=== PATIENT | female | born 1990 | race Two or more races ===

== ENCOUNTER 2016-12-12 08:45 | Emergency (ER) | payer SELFPAY ==
[~2016-12-12] VITALS: Ht 172.7 cm; Wt 90.7 kg
[~2016-12-12 08:45] MED LIST: ALBU8.5H6 IH
[2016-12-12] MEDS ORDERED: predniSONE 10 MG TABLET PO ONE (09:00)
[2016-12-12] MEDS ORDERED: IPRATRPIUM/ALBUTEROL 0.5/2.5MG 3 ML NEBU. NEB ONE (09:00)
[2016-12-12] MEDS ORDERED: PRED50TA PO (09:03)
[2016-12-12] MEDS ORDERED: VENTOLIN HFA18 GM INH (09:03)
--- NOTE | 2016-12-12 09:04 | PHYS DOC ---
Past Medical History Past Medical History: Asthma Additional Past Medical Histor: smoking Past Surgical History: Cholecystectomy Additional Past Surgical Histo: Gall stones in bile duct. Alcohol Use: None Drug Use: Marijuana Adult General Chief Complaint Chief Complaint: ASTHMA HPI HPI Patient is a 26 year old female with history of asthma who presents today complaining of a productive cough, wheezing and shortness of breath that began a week ago. Patient states she ran out of her inhaler as well as steroids. Patient denies any fever. Review of Systems Review of Systems Constitutional: Denies fever or chills [] Eyes: Denies change in visual acuity, redness, or eye pain [] HENT: Denies nasal congestion or sore throat [] Respiratory: Productive cough, wheezing and shortness of breath Cardiovascular: No additional information not addressed in HPI [] GI: Denies abdominal pain, nausea, vomiting, bloody stools or diarrhea [] : Denies dysuria or hematuria [] Musculoskeletal: Denies back pain or joint pain [] Integument: Denies rash or skin lesions [] Neurologic: Denies headache, focal weakness or sensory changes [] Current Medications Current Medications Current Medications Medications (Trade) Dose Ordered Sig/Rhianna Start Time Stop Time Status Last Admin Dose Admin Albuterol/ Ipratropium (Duoneb) 3 ml 1X ONCE 12/12/16 09:00 12/12/16 09:01 DC 12/12/16 09:09 3 ML Prednisone (Prednisone) 50 mg 1X ONCE 12/12/16 09:00 12/12/16 09:01 DC 12/12/16 09:06 50 MG Allergies Allergies Allergies Coded Allergies Type Severity Reaction Last Updated Verified No Known Drug Allergies 04/05/13 No Physical Exam Physical Exam Constitutional: Well developed, well nourished, no acute distress, non-toxic appearance. [] HENT: Normocephalic, atraumatic, bilateral external ears normal, oropharynx moist, no oral exudates, nose normal. [] Eyes: PERRLA, EOMI, conjunctiva normal, no discharge. [] Neck: Normal range of motion, no tenderness, supple, no stridor. [] Cardiovascular:Heart rate regular rhythm, no murmur [] Lungs & Thorax: Diffuse wheezing to posterior upper and lower lung bases, diffuse wheezing to anterior upper lung bases Abdomen: Bowel sounds normal, soft, no tenderness, no masses, no pulsatile masses. [] Skin: Warm, dry, no erythema, no rash. [] Back: No tenderness, no CVA tenderness. [] Extremities: No tenderness, no cyanosis, no clubbing, ROM intact, no edema. [] Neurologic: Alert and oriented X 3, normal motor function, normal sensory function, no focal deficits noted. [] Psychologic: Affect normal, judgement normal, mood normal. [] Current Patient Data Vital Signs Vital Signs Date Time Temp Pulse Resp B/P (MAP) Pulse Ox O2 Delivery O2 Flow Rate FiO2 12/12/16 09:09 99 Room Air 12/12/16 08:59 98.0 65 20 98.0 EKG EKG [] Radiology/Procedures Radiology/Procedures [] Course & Med Decision Making Course & Med Decision Making Pertinent Labs and Imaging studies reviewed. (See chart for details) This is a 26-year-old female patient with history of asthma presenting today with wheezing coughing and shortness of breath. Patient ran out of her inhaler and steroids. She was given a DuoNeb treatment and prednisone. Her lungs have cleared up. She'll be discharged with albuterol inhaler and prednisone for 4 more days. Recommended following up with the primary care doctor in 1-2 weeks. Provided return precautions and discharged in stable condition. Dragon Disclaimer Dragon Disclaimer This electronic medical record was generated, in whole or in part, using a voice recognition dictation system. Departure Departure Impression: Primary Impression: Asthma exacerbation Disposition: 01 HOME, SELF-CARE Condition: STABLE Referrals: NO PCP (PCP) follow up in one week Patient Instructions: Asthma, Adult Additional Instructions: You were seen for asthma exacerbation. Use of prednisone as well as breathing treatments as prescribed. Establish care with a primary care doctor and follow- up in the next 1-2 weeks. Please return to the emergency room if symptoms worsen. Scripts Albuterol Sulfate (VENTOLIN HFA INHALER) 18 Gm Hfa.aer.ad 2 PUFF INH Q4HRS for FOR ASTHMA, #1 INHALER 0 Refills Prov: JOHN MONTES [employer] 12/12/16 Prednisone (PREDNISONE) 50 Mg Tablet 1 TAB PO DAILY, #4 TAB Prov: JOHN MONTES [employer] 12/12/16 Problem Qualifiers Primary Impression: Asthma exacerbation Asthma severity: mild Asthma persistence: unspecified Qualified Codes: J45.901 - Unspecified asthma with (acute) exacerbation JOHN MONTES APRN Dec 12, 2016 09:04
[2016-12-12 09:42] VITALS: BP 112/68
== END 2016-12-12 09:45 | disposition home or self-care (01) ==
LOC: ER 08:45
DX: J45.901 Unspecified asthma with (acute) exacerbation (principal)
CPT/HCPCS: 94250; 94640; 99283; J7512; J7620

== ENCOUNTER 2017-03-11 21:10 | Emergency (ER) | payer SELFPAY ==
[2017-03-11] MEDS: IPRATRPIUM/ALBUTEROL 0.5/2.5MG 3 ML NEBU. NEB (22:39)
[2017-03-11] MEDS: ALBUTEROL SULFATE 2.5 MG/3 ML NEBU. CONT NEB (22:53)
[2017-03-11] MEDS: predniSONE 20 MG TABLET PO (23:10)
== END 2017-03-12 00:13 | disposition home or self-care (01) ==
LOC: ER 03-12 00:13
DX: J45.901 Unspecified asthma with (acute) exacerbation (principal); F17.200 Nicotine dependence, unspecified, uncomplicated; F12.10 Cannabis abuse, uncomplicated; Z90.49 Acquired absence of other specified parts of digestive tract; Z88.5 Allergy status to narcotic agent
CPT/HCPCS: 94640; 94644; 99284-25; J7512; J7613; J7620